=== PATIENT | male | born 1955 | race Caucasian/White ===

== ENCOUNTER 2017-04-10 11:35 | Emergency (ER) | payer BC ==
[2017-04-10 11:59] VITALS: BP 115/90
--- NOTE | 2017-04-10 12:27 | ER Document Report ---
ED Medical Screen (RME) - General Chief Complaint: Arm Pain Stated Complaint: CHEST PAIN Time Seen by Provider: 04/10/17 12:25 Notes: Patient states he has 2 days of dull left arm pain. He states that deep ache. He states he cannot reproduce the pain. He says his hand is also been feeling "numb". He specifically denies pins and needles. He states he does have a history of herniated cervical disks however this is the pain that he has not had before. He specifically denies chest pain. No shortness of breath. He states he has been sweating since yesterday and has felt very weak. He denies any history of coronary artery disease. States he had a normal stress test 3 years ago. He denies any swelling of the arm or color changes. He denies any recent significant usage of the arm and states that he is retired. TRAVEL OUTSIDE OF THE [place] IN LAST 30 DAYS: No - Related Data Allergies/Adverse Reactions: No Known Allergies Allergy (Unverified 04/10/17 11:58) Past Medical History Renal/ Medical History: Denies: Hx Peritoneal Dialysis Physical Exam - Vital signs Vitals: Temp Pulse Resp BP Pulse Ox 98.6 F 77 20 115/90 H 97 04/10/17 11:57 04/10/17 11:57 04/10/17 11:57 04/10/17 11:57 04/10/17 11:57 Course - Vital Signs Vital signs: Temp Pulse Resp BP Pulse Ox 98.6 F 77 20 115/90 H 97 04/10/17 11:57 04/10/17 11:57 04/10/17 11:57 04/10/17 11:57 04/10/17 11:57
[2017-04-10 12:58] LABS: HEMATOCRIT 39.5 % (37.9-51.0); HEMOGLOBIN 13.8 g/dL (13.5-17.0); HGB HCT DIFFERENCE 1.9; MEAN CORPUSCULAR HEMOGLOBIN 34.8 pg (27.0-33.4); MEAN CORPUSCULAR VOLUME 100 fl (80-97); RED BLOOD COUNT 3.97 10^6/uL (4.35-5.55); RED CELL DISTRIBUTION WIDTH 12.8 % (11.5-14.0)
--- NOTE | 2017-04-10 13:14 | ER Document Report ---
ED General - General Chief Complaint: Arm Pain Stated Complaint: CHEST PAIN Time Seen by Provider: 04/10/17 12:25 TRAVEL OUTSIDE OF THE [place] IN LAST 30 DAYS: No - HPI Notes: Patient is a 62-year-old male with a history of hypertension hypercholesterolemia who presents to the ED complaining of left arm pain and intermittent hand numbness 2 days. Patient states that he has been having a pain to his medial upper arm that feels "deep" in his hand is felt tingly on and off. Patient states that the pain did get him out of bed this morning. Patient states that he does have chronic neck and back issues with bulging disks. Patient states that he does not feel any radiation of pain or numbness from his neck distally. Patient states that when he moves his arm he can feel the soreness and ache that he is describing. Patient does feel the soreness in the arm even without movement. The pain does not radiate otherwise. Patient states that he was looking up her symptoms online and is worried about his heart. He denies having any heart history with coronary artery disease, defibrillator, pacemaker, congestive heart failure, [place]. He is still eating and drinking without any difficulties. Patient states that he is still able to ambulate without any difficulties, shortness of breath, dyspnea on exertion. Patient states that he does have a mild frontal headache right now which was a gradual development. Patient states he does take Percocet for pain. Patient states otherwise he has always been healthy. Patient denies any smoking or illicit drug use. He denies of any significant family history past/medical history otherwise. Denies any surgeries to his neck, arm. Denies any headache , fever, head injury, neck stiffness, changes in vision/speech/mentation/hearing /balance/behavior, URI, sore throat, chest pain, palpitations, syncope, cough, shortness of breath, wheeze, dyspnea, abdominal pain, nausea/vomiting/diarrhea, urinary retention, dysuria, hematuria, loss of control of bowel or bladder, or rash. - Related Data Allergies/Adverse Reactions: No Known Allergies Allergy (Verified 04/10/17 14:41) Home Medications: Current Home Medications Butalb/Acetaminophen/Caffeine [Rffabgic-Wvrqgyetmjpfz-Cltr Cp] 1 cap PO Q6HP PRN 04/10/17 [History] Cyclobenzaprine HCl [Flexeril 10 mg Tablet] 10 mg PO Q8 04/10/17 [History] Meloxicam [Mobic 7.5 mg Tablet] 7.5 mg PO Q12HP PRN 04/10/17 [History] Oxycodone HCl/Acetaminophen [Oxycodone-Acetaminophen 10-325] 1 tab PO Q8HP PRN 04/10/17 [History] Tramadol HCl [Ultram 50 mg Tablet] 50 mg PO QHS 04/10/17 [History] Zolpidem Tartrate 10 mg PO QHS 04/10/17 [History] Past Medical History - Social History Smoking Status: Never Smoker Family History: None, Reviewed & Not Pertinent Patient has suicidal ideation: No Patient has homicidal ideation: No Renal/ Medical History: Denies: Hx Peritoneal Dialysis Review of Systems - Review of Systems Notes: REVIEW OF SYSTEMS: CONSTITUTIONAL : Denies fever, chills, or sweats. Denies recent illness. EENT: Denies eye, ear, throat, or mouth pain or symptoms. Denies nasal or sinus congestion or discharge. Denies throat, tongue, or mouth swelling or difficulty swallowing. CARDIOVASCULAR: Denies chest pain. Denies palpitations or racing or irregular heart beat. Denies ankle edema. RESPIRATORY: Denies cough, cold, or chest congestion. Denies shortness of breath, difficulty breathing, or wheezing. GASTROINTESTINAL: Denies abdominal pain or distention. Denies nausea, vomiting , or diarrhea. Denies blood in vomitus, stools, or per rectum. Denies black, tarry stools. Denies constipation. GENITOURINARY: Denies difficulty urinating, painful urination, burning, frequency, blood in urine, or discharge. MUSCULOSKELETAL: see hpi. SKIN: Denies rash, lesions or sores. NEUROLOGICAL: see hpi. Denies confusion or altered mental status. Denies passing out or loss of consciousness. Denies dizziness or lightheadedness. Denies headache. Denies weakness or paralysis or loss of use of either side. Denies problems with gait or speech. Denies seizures. PSYCHIATRIC: Denies anxiety or stress. Denies depression, suicidal ideation, or homicidal ideation. ALL OTHER SYSTEMS REVIEWED AND NEGATIVE. Dictation was performed using [employer] voice recognition software Physical Exam - Vital signs Vitals: Temp Pulse Resp BP Pulse Ox 98.6 F 77 20 115/90 H 97 04/10/17 11:57 04/10/17 11:57 04/10/17 11:57 04/10/17 11:57 04/10/17 11:57 Notes: PHYSICAL EXAMINATION: GENERAL: Well-appearing, well-nourished and in no acute distress. HEAD: Atraumatic, normocephalic. Non-tender. No aponte sign. EYES: Pupils equal round and reactive to light, extraocular movements intact, sclera anicteric, conjunctiva are normal. ENT: EAC clear b/l. TM's intact b/l without erythema, fluid, or perforation. Nares patent and without discharge. oropharynx clear without exudates. No tonsilar hypertrophy or erythema. Moist mucous membranes. No sinus tenderness. NECK: Normal range of motion, supple without lymphadenopathy. No rigidity/ meningismus. No midline tenderness. Spurling negative. + mild paraspinal tenderness. LUNGS: Breath sounds clear to auscultation bilaterally and equal. No wheezes rales or rhonchi. Chest: no flail chest. No accessory muscle use. No tenderness. HEART: Regular rate and rhythm without murmurs, rubs, gallops. ABDOMEN: Soft, nontender, nondistended abdomen. No guarding, no rebound. No masses appreciated. Normal bowel sounds present. No CVA tenderness bilaterally. Musculoskeletal: Lt UE: FROM to passive/active. Strength 5+/5. + tenderness to the medial upper arm w/o obvious erythema, ecchymosis, abrasion, laceration, swelling, warmth, induration, or palpable mass/cord. Brachial/radial pulse 2+ b /l. N/V intact distal. Tinel/phalen neg to wrist, tinel neg to cubital tunnel. Extremities: No cyanosis, clubbing, or edema b/l. Peripheral pulses 2+. Capillary refill less than 3 seconds. NEUROLOGICAL: Cranial nerves grossly intact. Normal speech, normal gait. Normal sensory, motor exams. BELLA's intact. Finger/nose:Heel/castano, Pronator drift unremarkable. PSYCH: Normal mood, normal affect. SKIN: Warm, Dry, normal turgor, no rashes or lesions noted. Course - Re-evaluation Re-evalutation: 04/10/17 14:46 Patient is an afebrile, well-hydrated, 62-year-old male who presents to the ED with left arm pain and intermittent left hand numbness, suspect cervical etiology versus brachial plexopathy versus muscle strain/sprain. Vitals are stable. PE otherwise unremarkable for any focal neurological deficits. Patient had palpable tenderness and increased pain with movement of the arm. Patient has not had any chest pain, dyspnea on exertion, shortness of breath, or any other cardiac/respiratory symptom. Reaffirmed patient about my low suspicion for any cardiac etiology at this time, but patient persisted to have a cardiac workup performed despite the risks/benefits being reviewed because of what he read online. CBC, CMP, EKG, chest x-ray, cardiac enzymes were unremarkable at this time. Patient has a heart score of 1. Venous ultrasound of the left upper extremity was negative. Low suspicion/risk for any ACS, PE, pneumothorax, pericarditis, dissection, venous clot, tendon rupture, neurovascular compromise, disc herniation causing severe spinal stenosis, spinal mass lesion or abscess, meningitis, sepsis. Patient is aware that his condition can change from initial presentation and that he needs monitor symptoms closely for any acute changes. Strict return precautions reviewed. Advised follow-up with PCM in 1-2 days. Return to the ED with any worsening/ concerning symptoms otherwise as reviewed in discharge. Patient is in agreement. - Vital Signs Vital signs: Temp Pulse Resp BP Pulse Ox 98.6 F 77 20 115/90 H 98 04/10/17 11:57 04/10/17 11:57 04/10/17 13:00 04/10/17 11:57 04/10/17 12:50 - Laboratory Result Diagrams: 04/10/17 12:35 04/10/17 12:35 Laboratory results interpreted by me: 04/10/17 04/10/17 12:35 12:35 WBC 13.0 H RBC 3.97 L MCV 100 H MCH 34.8 H Seg Neuts % (Manual) 38 L Band Neutrophils % 1 L Lymphocytes % (Manual) 53 H Abs Lymphs (Manual) 7.2 H BUN 34 H Discharge - Discharge Clinical Impression: Left arm pain Condition: Stable Disposition: HOME, SELF-CARE Instructions: Arm Pain, Nonspecific ([facility]) Additional Instructions: Rest, Ice, Compression, Elevation Use sling as directed Tylenol/ibuprofen as needed Light stretches daily Strength exercises as able Moist heat and massage may help F/u with your PCP in 2-3 days for a recheck Consider consult(s) with Orthopedics/physical therapy for ongoing/worsening symptoms Return to the ED with any worsening symptoms and/or development of fever, headache, chest pain, palpitations, syncope, shortness of breath, trouble breathing, dyspnea on exertion, abdominal pain, n/v/d, muscle weakness/paralysis , numbness/tingling, swelling, redness, or other worsening symptoms that are concerning to you. Forms: Elevated Blood Pressure Referrals: [facility] ([facility]) [Provider Group] - Follow up as needed
[2017-04-10 13:16] LABS: ALANINE AMINOTRANSFERASE 31 U/L (21-72); ALBUMIN 4.5 g/dL (3.5-5.0); ALKALINE PHOSPHATASE 66 U/L (38-126); ANION GAP 12 (5-19); ASPARTATE AMINO TRANSFERASE 19 U/L (17-59); BILIRUBIN,DIRECT 0.3 mg/dL (0.0-0.4); BILIRUBIN,TOTAL 0.4 mg/dL (0.2-1.3); BLOOD UREA NITROGEN 34 mg/dL (7-20); CALCIUM 9.8 mg/dL (8.4-10.2); CARBON DIOXIDE 28 mmol/L (22-30); CHLORIDE 103 mmol/L (98-107); CREATININE RESULT 1.02 mg/dL (0.52-1.25); GLUCOSE 94 mg/dL (75-110); POTASSIUM 4.4 mmol/L (3.6-5.0); SODIUM 142.5 mmol/L (137-145); TOTAL PROTEIN 6.9 g/dL (6.3-8.2)
[2017-04-10 13:29] LABS: BAND NEUTROPHILS % (MANUAL) 1 % (3-5); BASOPHILS % (MANUAL) 1 % (0-2); EOSINOPHILS % (MANUAL) 0 % (0-6); LYMPHOCYTES % (MANUAL) 53 % (13-45); TOTAL CELLS COUNTED 100
[2017-04-10 13:31] LABS: OVALOCYTES SLIGHT; POIKILOCYTOSIS SLIGHT
[2017-04-10 13:32] LABS: PLATELET CLUMPS PRESENT
--- NOTE | 2017-04-10 14:16 | RADIOLOGY REPORT (SQ) ---
EXAM DESCRIPTION: CHEST SINGLE VIEW COMPLETED DATE/TIME: 04/10/2017 2:09 pm REASON FOR STUDY: left arm pain, hand numbness COMPARISON: None. EXAM PARAMETERS: NUMBER OF VIEWS: One view. TECHNIQUE: Single frontal radiographic view of the chest acquired. RADIATION DOSE: NA LIMITATIONS: None. FINDINGS: LUNGS AND PLEURA: No opacities, masses or pneumothorax. No pleural effusion. MEDIASTINUM AND HILAR STRUCTURES: No masses. Contour normal. HEART AND VASCULAR STRUCTURES: Heart normal in size. Normal vasculature. BONES: No acute findings. HARDWARE: None in the chest. OTHER: No other significant finding. IMPRESSION: NO ACUTE RADIOGRAPHIC FINDING IN THE CHEST. TECHNICAL DOCUMENTATION: JOB ID: [id number]
--- NOTE | 2017-04-10 14:34 | RADIOLOGY REPORT (SQ) ---
EXAM DESCRIPTION: VENOUS UNILATERAL UPPER COMPLETED DATE/TIME: 04/10/2017 2:16 pm REASON FOR STUDY: left arm pain, hand numbness COMPARISON: None. TECHNIQUE: Dynamic and static drummond scale and color images acquired of the LEFT arm venous system. Se lected spectral images acquired with additional compression and augmentation maneuvers. The contralat eral subclavian vein and internal jugular vein were also imaged. Images stored on PACS. LIMITATIONS: None. FINDINGS: LEFT INTERNAL JUGULAR VEIN: Normal phasicity, compression, augmentation. No visualized echogenic material on drummond scale. No defects on color images. Comparison opposite side normal. SUBCLAVIAN VEIN: Normal compression, augmentation. No visualized echogenic material on drummond scale. No defects on color images. AXILLARY VEIN: Normal compression, augmentation. No visualized echogenic material on drummond scale. No d efects on color images. BRACHIAL VEIN: Normal compression, augmentation. No visualized echogenic material on drummond scale. No d efects on color images. BASILIC VEIN: Normal compression, augmentation. No visualized echogenic material on drummond scale. No de fects on color images. CEPHALIC VEIN: Normal compression, augmentation. No visualized echogenic material on drummond scale. No d efects on color images. OTHER: No other significant finding. RIGHT SUBCLAVIAN VEIN AND INTERNAL JUGULAR VEIN: Normal phasicity, compression and augmentation. No visualized echogenic material on drummond scale. No de fects on color images. IMPRESSION: NO EVIDENCE DVT OR SVT LEFT ARM. TECHNICAL DOCUMENTATION: JOB ID: [id number] [employer]- All Rights Reserved
--- NOTE | 2017-04-10 19:14 | EKG REPORT ---
SEVERITY:- NORMAL ECG - SINUS RHYTHM : Confirmed by: Angelito Bose MD 10-Apr-2017 19:13:53
--- NOTE | 2017-04-10 19:14 | EKG REPORT ---
SEVERITY:- OTHERWISE NORMAL ECG - SINUS RHYTHM LEFT AXIS DEVIATION : Confirmed by: Angelito Bose MD 10-Apr-2017 19:13:59
== END 2017-04-10 16:02 | disposition home or self-care (01) ==
LOC: ER 11:35
DX: M79.602 Pain in left arm (principal); R51 Headache; R20.0 Anesthesia of skin; I10 Essential (primary) hypertension; E78.00 Pure hypercholesterolemia, unspecified
CPT/HCPCS: 93005 ×2; 99284; 36415; 82553; 82550; 85025; 80053; 84484; 93971; 71010; 93010; L3650